=== PATIENT | male | born 1935 | race Caucasian/White ===

== ENCOUNTER 2020-08-01 14:09 | Emergency (ER) | payer MEDICARE, OTHER, SELFPAY ==
--- NOTE | 2020-08-01 14:13 | ECG_ITS ---
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: : 1935 Requested By: Raffy Pavon Order Number: [id number] Cash MD: JOSE BUITRAGO Measurements Intervals [place] Rate: 72 P: MD: QRS: 2 QRSD: 154 T: 93 QT: 472 QTc: 517 Interpretive Statements SINUS RHYTHM LEFT BUNDLE BRANCH BLOCK [120+ ms QRS DURATION, 80+ ms Q/S IN V1/V2, 85+ ms R IN I/aVL/V5/V6] Compared to ECG 01/24/2019 12:43:24 Sinus rhythm no longer present First degree AV block no longer present Left-axis deviation no longer present Electronically Signed On 08-01-2020 19:28:48 SOX ANALYST by JOSE BUITRAGO [id number] f
--- NOTE | 2020-08-01 14:14 | CT_ITS ---
WS: [id number] CT HEAD NONCONTRAST HISTORY: AMS TECHNIQUE: Contiguous axial imaging performed through the brain in 2.5 mm imaging. Bone and soft tiss ue windows. Sagittal and coronal reformats reviewed. All CT scans at [facility] use at ast one of these dose optimization techniques: automated exposure control; mA and/or kV adjustment pe r patient size (includes targeted exams where dose is matched to clinical indication); or iterative r econstruction. DLP: 756.6 mGy.cm COMPARISON: 01/17/2019 No acute intracranial hemorrhage, midline shift or mass effect. Severe bilateral symmetric atrophy and mild chronic microvascular ischemic disease. Prior lacunar inf arct in the RIGHT caudate head and in the RIGHT basal ganglia. Moderate bilateral cerebellar atrophy. Ventricles: Normal size with no hydrocephalus. Paranasal sinuses: As visualized are clear. Mastoid air cells: Well pneumatized. Calvarium and scalp: Skull is intact with no soft tissue edema or swelling. Extensive atherosclerotic plaque within the intracranial cavernous carotid arteries. CT/CT head wo con* [id number] IMPRESSION: 1. No acute intracranial hemorrhage or edema. 2. 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 No interval change.
--- NOTE | 2020-08-01 14:14 | XRR_ITS ---
PROCEDURE INFORMATION: Exam: XR Chest, 1 View Exam date and time: 08/01/2020 2:55 PM Age: 85 years old Clinical indication: Cough and dyspnea; Additional info: Dyspnea/cough, AMS TECHNIQUE: Imaging protocol: XR of the chest Views: 1 view. COMPARISON: CR Chest 1 [place] [id number] 01/17/2019 8:23 PM FINDINGS: Lungs: There is elevation of the left hemidiaphragm. No consolidation. Pleural spaces: Unremarkable. No pleural effusion. No pneumothorax. Heart/Mediastinum: Unremarkable. No cardiomegaly. Bones/joints: Unremarkable. XR/XR chest 1V portable [id number] IMPRESSION: No acute findings.
--- NOTE | 2020-08-01 14:15 | ED_ITS ---
HPI - Altered Mental Status General: Chief Complaint: Psychiatric Symptoms Stated Complaint: AMS Time Seen by Provider: 08/01/20 14:10 History of Present Illness: HPI narrative: 85-year-old male presents emergency room with altered mental status. He was at [place] care has been very aggressive and combative over the last 3 days.. They have tried various medications with minimal improvement in his behavior. We arrived here he is very sedate. He has been given Haldol and Ativan before getting here. He is difficult to arouse. MD complaint: altered mental status Onset (ago): day(s) Timing confirmed by: caregiver Severity: moderate Consistency of symptoms: Getting Worse Associated symptoms: Deny delusions or racing thoughts Review of Systems General: Reports: ROS unobtainable due to medical condition and ROS unobtainable due to mental status GI: Denies: melena PFSH ED PFSH: Medical History (Updated 08/01/20 @ 15:07 by Raffy Hernandez DO) Dementia Physical Exam Const: COMMON NORMALS: no acute distress HENMT: COMMON NORMALS: normocephalic, atraumatic and hearing grossly normal bilaterally HEAD & SCALP: normocephalic and atraumatic Neck/C-Spine: COMMON NORMALS: no JVD Resp: COMMON NORMALS: normal respiratory effort, No retractions, No use of accessory muscles and clear to auscultation bilaterally AUSCULTATION: clear to auscultation bilaterally Cardio: COMMON NORMALS: no JVD, regular rate, regular rhythm and No murmurs present (Cardio) RATE: regular rate RHYTHM: regular rhythm GI: COMMON NORMALS: Soft to palpation and No hepatosplenomegaly present AUSCULTATION: Yes normoactive bowel sounds PALPATION: Yes Soft to palpation, No Tenderness to palpation present (GI), No Guarding due to palpation present (GI) and Yes No hepatosplenomegaly present Extremity: COMMON NORMALS: normal to inspection, capillary refill normal, no clubbing, cyanosis or edema, no calf tenderness and no pedal edema Psych: THOUGHT CONTENT: No delusions Skin: COMMON NORMALS: no rashes or lesions noted GENERAL SKIN EXAM: no rashes or lesions noted Course Vital Signs: Vital signs: Vital Signs Temperature 97.4 F L 08/01/20 14:16 Pulse Rate 75 08/01/20 21:08 Respiratory Rate 16 08/01/20 21:08 Blood Pressure 147/102 08/01/20 21:08 Pulse Oximetry 95 08/01/20 21:08 MDM - Altered Mental Status MDM Narrative: Medical decision making narrative: Will evaluate for med clearance to admit to geriatric psych [facility] psych at [place]. Lab Data: Labs: Lab Results 08/01/20 08/01/20 08/01/20 Range/Units 14:47 14:47 15:11 WBC 5.6 (4.0-10.0) 10^3/ uL RBC 4.41 (4.1-5.3) 10^6/u L Hgb 14.2 (11.7-16.6) g/dL Hct 43.8 (42.0-52.0) % MCV 99.3 H (80-94) fL MCH 32.2 (28.0-34.0) pg MCHC 32.4 (30.0-36.0) g/dL RDW 12.3 (12.1-15.1) % Plt Count 221 (130-400) 10^3/c mm MPV 10.2 (7.4-10.4) fL Neut % (Auto) 71.5 % Lymph % (Auto) 16.0 % [place] % (Auto) 10.5 % Eos % (Auto) 1.4 % Baso % (Auto) 0.2 % Neut # (Auto) 4.01 (1.8-7.7) 10^3/u L Lymph # (Auto) 0.9 (0.8-4.8) 10^3/u L [place] # (Auto) 0.6 (0.2-0.9) 10^3/u L Eos # (Auto) 0.1 (0.0-0.8) 10^3/u L Baso # (Auto) 0.0 (0.0-0.1) 10^3/u L Nucleated RBC % (a uto) 0 % Nucleated RBCs # 0.0 /100WBC Sodium 139 (136-145) mmol/L Potassium 3.9 (3.5-5.1) mmol/L Chloride 104 (98-107) mmol/L Carbon Dioxide 28 (22-29) mmol/L Anion Gap 10.9 (5-19) BUN 16 (8-23) mg/dL Creatinine 0.8 (0.7-1.2) mg/dL GFR Calculation Not Reportable Glucose 158 H (65-115) mg/dL Calculated Osmolal ity 292 (285-295) mOsm/k g Calcium 8.7 (8.5-10.5) mg/dL Total Bilirubin 0.6 (0.15-1.2) mg/dL AST 73 H (0-40) U/L ALT 54 H (0-41) U/L Alkaline Phosphata se 96 (40-130) IU/L Total Protein 6.1 L (6.6-8.7) g/dL Albumin 3.7 (3.5-5.2) g/dL Globulin 2.4 (1.3-4.6) g/dL Urine Color Yellow (Yellow) Urine Appearance Clear (CLEAR) Urine pH 7 (5-7) Ur Specific Gravit y 1.010 (1.005-1.030) Urine Protein Neg (Negative) Urine Glucose (UA) Norm (Normal) Urine Ketones Negative (Negative) Urine Blood Neg (Negative) Urine Nitrate Negative (Negative) Urine Bilirubin Neg (Negative) Urine Urobilinogen Norm (Negative) mg/dL Ur Leukocyte Niki ase Negative (Negative) Salicylates < 0.3 L (3-10) mg/dL Acetaminophen < 5.0 L (10-30) ug/mL Ethyl Alcohol < 10 (0-10) mg/dL SARS-CoV-2 Ag (Rap id) (Negative) 08/01/20 Range/Units 15:28 WBC (4.0-10.0) 10^3/ uL RBC (4.1-5.3) 10^6/u L Hgb (11.7-16.6) g/dL Hct (42.0-52.0) % MCV (80-94) fL MCH (28.0-34.0) pg MCHC (30.0-36.0) g/dL RDW (12.1-15.1) % Plt Count (130-400) 10^3/c mm MPV (7.4-10.4) fL Neut % (Auto) % Lymph % (Auto) % [place] % (Auto) % Eos % (Auto) % Baso % (Auto) % Neut # (Auto) (1.8-7.7) 10^3/u L Lymph # (Auto) (0.8-4.8) 10^3/u L [place] # (Auto) (0.2-0.9) 10^3/u L Eos # (Auto) (0.0-0.8) 10^3/u L Baso # (Auto) (0.0-0.1) 10^3/u L Nucleated RBC % (a uto) % Nucleated RBCs # /100WBC Sodium (136-145) mmol/L Potassium (3.5-5.1) mmol/L Chloride (98-107) mmol/L Carbon Dioxide (22-29) mmol/L Anion Gap (5-19) BUN (8-23) mg/dL Creatinine (0.7-1.2) mg/dL GFR Calculation Glucose (65-115) mg/dL Calculated Osmolal ity (285-295) mOsm/k g Calcium (8.5-10.5) mg/dL Total Bilirubin (0.15-1.2) mg/dL AST (0-40) U/L ALT (0-41) U/L Alkaline Phosphata se (40-130) IU/L Total Protein (6.6-8.7) g/dL Albumin (3.5-5.2) g/dL Globulin (1.3-4.6) g/dL Urine Color (Yellow) Urine Appearance (CLEAR) Urine pH (5-7) Ur Specific Gravit y (1.005-1.030) Urine Protein (Negative) Urine Glucose (UA) (Normal) Urine Ketones (Negative) Urine Blood (Negative) Urine Nitrate (Negative) Urine Bilirubin (Negative) Urine Urobilinogen (Negative) mg/dL Ur Leukocyte Niki ase (Negative) Salicylates (3-10) mg/dL Acetaminophen (10-30) ug/mL Ethyl Alcohol (0-10) mg/dL SARS-CoV-2 Ag (Rap id) Negative (Negative) Discharge Plan Discharge Patient Disposition: Xfer Psychiatric Hosp Clinical Impression: Dementia with aggressive behavior Condition: Stable Discharge Orders: Transfer Out of Facility (Order); Ordered 08/01/20 Ordered By: Estelita Gaxiola Coding Level of Care Code ED [employer] Machine Operator for Chg Fwd Exam Comprehensive
[2020-08-01 14:16] VITALS: BP 137/78; PULSE 78; RESP 16; TEMP 36.3; O2SAT 97
[2020-08-01] MEDS: haloperidol inj 5 mg/mL INJ 1 mL IVP (14:54)
[2020-08-01 14:57] LABS: Basophils % 0.2 %; Eosinophils # 0.1 10^3/uL (0.0-0.8); Eosinophils % 1.4 %; Hematocrit 43.8 % (42.0-52.0); Hemoglobin 14.2 g/dL (11.7-16.6); Lymphocytes # 0.9 10^3/uL (0.8-4.8); Mean Corpuscular HGB Conc 32.4 g/dL (30.0-36.0); Mean Corpuscular Hemoglobin 32.2 pg (28.0-34.0); Mean Corpuscular Volume 99.3 fL (80-94); Mean Platelet Volume 10.2 fL (7.4-10.4); Monocytes # 0.6 10^3/uL (0.2-0.9); Monocytes % 10.5 %; Neutrophils # 4.01 10^3/uL (1.8-7.7); Neutrophils % 71.5 %; Nucleated Red Blood Cells % 0 %; Platelet Count 221 10^3/cmm (130-400); Red Blood Count 4.41 10^6/uL (4.1-5.3); Red Cell Distribution Width 12.3 % (12.1-15.1); White Blood Count 5.6 10^3/uL (4.0-10.0)
[2020-08-01 15:15] LABS: Alanine Aminotransferase 54 U/L (0-41); Albumin Level 3.7 g/dL (3.5-5.2); Alkaline Phosphatase 96 IU/L (40-130); Anion Gap 10.9 (5-19); Aspartate Amino Transferase 73 U/L (0-40); Blood Urea Nitrogen 16 mg/dL (8-23); Calcium 8.7 mg/dL (8.5-10.5); Carbon Dioxide 28 mmol/L (22-29); Chloride 104 mmol/L (98-107); Globulin 2.4 g/dL (1.3-4.6); Glucose 158 mg/dL (65-115); Osmolality Calculated 292 mOsm/kg (285-295); Potassium 3.9 mmol/L (3.5-5.1); Sodium 139 mmol/L (136-145); Total Bilirubin 0.6 mg/dL (0.15-1.2); Total Protein 6.1 g/dL (6.6-8.7)
[2020-08-01 15:17] LABS: Acetaminophen < 5.0 ug/mL (10-30); Alcohol Level < 10 mg/dL (0-10); Salicylate < 0.3 mg/dL (3-10)
[2020-08-01 15:18] LABS: Add Urine Microscopic? NO
[2020-08-01 15:35] LABS: Urine Appearance Clear (CLEAR); Urine Color Yellow (Yellow); pH Urine 7 (5-7)
[2020-08-01 15:36] LABS: Bilirubin Urine Neg (Negative); Blood Urine Neg (Negative); Glucose Urine UA Norm (Normal); Ketones Urine Negative (Negative); Leukocyte Esterase Urine Negative (Negative); Nitrate Urine Negative (Negative); Protein Urine Neg (Negative); Urobilinogen Urine Norm (Negative)
[2020-08-01 15:38] VITALS: BP 143/87; PULSE 87; RESP 21; O2SAT 97
[2020-08-01 16:15] LABS: SARS Covid-2 Antigen Negative (Negative)
[2020-08-01] MEDS: LORazepam 2 mg/mL INJ 1 mL IM ×2 (16:53→21:25)
[2020-08-01 18:27] VITALS: BP 164/82; PULSE 66; RESP 18; O2SAT 98
[2020-08-01 19:10] VITALS: BP 153/78; PULSE 84; O2SAT 95
--- NOTE | 2020-08-01 19:55 | PC.NURSE ---
Call from Estefani at [facility]. They are waiting to hear from patient family and get consent, pt does not have a DPOA so they are trying to gain proper consent.
[2020-08-01 21:08] VITALS: BP 147/102; PULSE 75; RESP 16; O2SAT 95
== END 2020-08-01 21:27 ==
PROVIDERS: Emergency Provider Family Medicine
DX: F03.91 Unspecified dementia, unspecified severity, with behavioral disturbance (principal)
CPT/HCPCS: 12345; 70450; 71045; 80053; 80307; 81003; 85025; 87426; 93005; 96372; 96374; 99284; 99285; J1630; J2060